=== PATIENT | male | born 1935 | race Caucasian/White ===

== ENCOUNTER → 2020-09-11 | Outpatient (CLI) | payer MEDICARE ==
[~2020-09-11] MED LIST: GABA300 PO; VICODIN 5-3001 EACH PO
== END | disposition home or self-care (01) ==
LOC: LAB 14:50 → LAB SHORT 14:50
DX: D48.5 Neoplasm of uncertain behavior of skin (principal)
CPT/HCPCS: 88305

== ENCOUNTER 2024-08-09 11:43 | Emergency (ER) | payer MEDICARE ==
[~2024-08-09] VITALS: Ht 177.8 cm; Wt 63.5 kg
[2024-08-09 12:09] VITALS: BP 174/67
== END 2024-08-09 14:17 | disposition home or self-care (01) ==
LOC: ER 11:43
DX: K43.9 Ventral hernia without obstruction or gangrene (principal); C61 Malignant neoplasm of prostate; Z87.891 Personal history of nicotine dependence; Z88.0 Allergy status to penicillin; Z88.1 Allergy status to other antibiotic agents; Z79.899 Other long term (current) drug therapy
CPT/HCPCS: 76705; 99284-25